=== PATIENT | female | born 1980 | race Caucasian/White ===

== ENCOUNTER 2018-12-10 03:42 | Emergency (ER) | payer OTHER ==
[2018-12-10 04:03] VITALS: BP 171/98; PULSE 65; TEMP 98.1; BMI 30.9
[2018-12-10] MEDS ORDERED: ACETAMINOPHEN 500 MG TABLET (FP) PO ONE (04:25)
[2018-12-10] MEDS ORDERED: METOCLOPRAMIDE HCL 10 MG TABLET (FP) PO ONE (04:25)
[2018-12-10] MEDS ORDERED: VALSARTAN 40 MG TABLET (FP) PO ONE (04:29)
[2018-12-10] MEDS ORDERED: ACETAMINOPHEN 325 MG TABLET (FP) ONE (04:30)
--- NOTE | 2018-12-10 04:36 | PDOC ---
Attending Attestation - Resident Resident Name: Lu Muniz - ED Attending Attestation I have performed the following: I have examined & evaluated the patient, The case was reviewed & discussed with the resident, I agree w/resident's findings & plan - HPI HPI: 12/10/18 04:35 Pt's BP meds were changed and now her BP is high and she has a DIEHL. Pt will be given a dose of diovan here in the ER. - Physicial Exam PE: 12/10/18 04:35 Agree with resident exam - Medical Decision Making 12/10/18 04:36 Pt will have meds for DIEHL. She will be reevaluated.
--- NOTE | 2018-12-10 04:59 | PDOC ---
History of Present Illness - General Chief Complaint: Headache Stated Complaint: HEADACHE Time Seen by Provider: 12/10/18 03:57 - History of Present Illness Initial Comments: Paris Styles is a 38yo woman with a PMH of HTN who presents with a throbbing right-sided headache that started around 11pm tonight. She states that she did not take any medication at home because she was unsure what she could take with her hypertension. She denies any associated photophobia, phonophobia, nausea/ vomiting, or neurological symptoms and has not had any recent URI, fever/chills , congestion or other illness. Past History - Past Medical History Allergies/Adverse Reactions: Allergies Allergy/AdvReac Type Severity Reaction Status Date / Time No Known Allergies Allergy Verified 12/10/18 04:28 Home Medications: Ambulatory Orders Labetalol HCl [Normodyne -] 100 mg PO DAILY 12/10/18 - Suicide/Smoking/Psychosocial Hx Smoking History: Never smoked Drug/Substance Use Hx: No Review of Systems - Review of Systems Comments:: General: No fevers, no chills, no weight or appetite change, no malaise HEENT: No changes in vision, no changes in hearing, no congestion, no sore throat CV: No chest pain, no palpitations, no LE edema Pulm: No SOB, no cough, no wheezing GI: No nausea or vomiting, no change in bowel habits, no melena : No frequency, no urgency, no dysuria Musc: No back pain, no joint swelling, no recent injury Skin: No rash, no lesions, no erythema Endo: No excessive thirst, no heat/cold intolerance Heme: No unusual bruising or bleeding, no swollen glands Neuro: No syncope, no numbness/tingling, no focal weakness Vasc: No claudication Psych: No recent change in mood, no SI or HI *Physical Exam - Vital Signs Last Vital Signs Temp Pulse Resp BP Pulse Ox 98.1 F 65 20 171/98 H 98 12/10/18 03:57 12/10/18 03:57 12/10/18 03:57 12/10/18 03:57 12/10/18 03:57 - Physical Exam Comments: General: Comfortable, no acute distress HEENT: PERRL, EOMI, MMM, voice normal, normal neck ROM, no LAD Cards: RRR, no murmur appreciated Pulm: Comfortable on room air, clear to auscultation bilaterally Abd: Soft, nontender, nondistended Ext: Atraumatic. No LE edema. ROM intact Vasc: Extremities WWP Skin: Normal color, no rashes or lesions Neuro: A&Ox3, CN grossly intact, normal speech, motor/sensory grossly intact and symmetric Psych: Mood appropriate to situation Medical Decision Making - Medical Decision Making 12/10/18 04:47 Paris Styles is a 38yo woman with a PMH of HTN who presents with a throbbing right-sided headache that started around 11pm tonight without associated symptoms. - Most likely benign headache, but noted to be hypertensive to 170/90's on arrival. No concerning symptoms including acute onset, neurological deficits or abnormalities on exam - Acetaminophen and reglan for headache - EKG due to hypertension - Valsartan for HTN 12/10/18 05:19 - EKG completed. NSR, HR 63, normal axis, normal intervals, no t-wave or ST changes - Will reassess. If improved and HR decreased, will most likely d/c home with cardiology and PMD follow up. To be seen by Dr Davila. 12/10/18 05:28 - BP now SBP 149 - Feels improved - Will d/c home. Hydrochlorothiazide to be prescribed for better BP control following discussion w/ Dr Davila. Will send to follow up with cardiology for additional evaluation and management. Discussed with Dr Davila. Lu Muniz PGY1 *DC/Admit/Observation/Transfer Diagnosis at time of Disposition: Headache Qualifiers: Headache type: unspecified Headache chronicity pattern: acute headache Intractability: not intractable Qualified Code(s): R51 - Headache - Discharge Dispostion Disposition: HOME Condition at time of disposition: Stable Decision to Admit order: No - Referrals - Patient Instructions Printed Discharge Instructions: DI for High Blood Pressure Additional Instructions: Discharge Instructions: You were seen in the emergency department for a headache. You were found to have high blood pressure, but this improved with medication. Home Care and Follow Up: - You may use over the counter medications as needed for pain at home. 650- 1000mg acetaminophen (Tylenol) or 600mg ibuprofen (Motrin or Advil) can be used every 6-8 hours. If needed for continued pain, these medications may be alternated every 3-4 hours. For example, if you take ibuprofen at 9am, you may take acetaminophen at noon, ibuprofen at 3pm, etc. - It is strongly recommended that you take ibuprofen with food to help prevent stomach irritation. - You have been prescribed a new blood pressure medication called hydrochlorothiazide. This should be taken twice per day as prescribed. - Make an appointment to follow up with your primary doctor within the next 2-3 days - You have been referred to cardiology for follow up and additional management of your blood pressure. - Seek immediate medical care if you have significant worsening of your symptoms , you have chest pain or difficulty breathing, you have a headache that starts suddenly, you have any neurological symptoms with your headache, or you have any other medical emergency. Instrucciones de descarga: Te vieron en el departamento de emergencias por un dolor de jane. Se encontr que jigar presin arterial gera, vanessa esto mejor con la medicacin. Atencin domiciliaria y seguimiento: - Puede usar medicamentos de venta olivia segn sea necesario para el dolor en el hogar. Se pueden usar 650-1000 mg de paracetamol (Tylenol) o 600 mg de ibuprofeno (Motrin o Advil) cada 6-8 horas. Si es necesario para el dolor continuo, estos medicamentos pueden alternarse cada 3-4 horas. Por ejemplo, si elva ibuprofeno a las 9 am, puede irene acetaminofn al medioda, ibuprofeno a las 3 pm, etc. - Se recomienda encarecidamente que tome ibuprofeno con alimentos para ayudar a prevenir la irritacin estomacal. - [place] recetado un nuevo medicamento para la presin arterial llamado hidroclorotiazida. [place] debe tomarse dos veces al da segn lo prescrito. - Fredrick gwendolyn rosa para hacer un seguimiento con león mdico de cabecera dentro de los siguientes 2 a 3 quintanilla. - [place] sido referido a cardiologa para seguimiento y manejo adicional de león presin arterial. - Busque atencin mdica inmediata si tiene un empeoramiento significativo de my sntomas, si tiene dolor en el pecho o dificultad para respirar, si tiene un dolor de jane que comienza repentinamente, tiene algn sntoma neurolgico con león dolor de jane o si tiene alguna otra emergencia mdica. - Post Discharge Activity
[2018-12-10] MEDS ORDERED: VALSARTAN 80 MG TABLET (UD) ONE (05:11)
--- NOTE | 2018-12-12 00:28 | EKG ---
Test Reason : Blood Pressure : / mmHG Vent. Rate : 063 BPM Atrial Rate : 063 BPM P-R Int : 198 ms QRS Dur : 088 ms QT Int : 418 ms P-R-T Axes : 031 004 004 degrees QTc Int : 427 ms NORMAL SINUS RHYTHM NORMAL ECG NO PREVIOUS ECGS AVAILABLE Confirmed by MD Jose F, Moe ([id number]) on 12/12/2018 12:28:32 AM Referred By: Confirmed By:Moe Kohler MD
== END 2018-12-10 05:36 | disposition home or self-care (01) ==
LOC: JER 03:42 → EDBD 03:42 → JER 05:36
DX: R51 Headache (principal); I10 Essential (primary) hypertension
CPT/HCPCS: 93005; 93010; 99281-25